=== PATIENT | female | born 1935 ===

== ENCOUNTER 2020-06-07 12:34 | Inpatient (IN) | payer MEDICARE, BC ==
[~2020-06-07 12:34] MED LIST: Dexamethasone 20 MG/5 ML VIAL ONE; Lidocaine 1% PF 5 ML VIAL ONE; Metoclopramide HCl 10 MG/2 ML VIAL ONE; Ondansetron PF 4 MG/2 ML Vial ONE; PROPOFOL 200 MG/20 ML VIAL ONE; Rocuronium Bromide 10 MG/ML (10ML VIAL) ONE; ePHEDrine 50 MG/ML VIAL ONE
[2020-06-07] MEDS ORDERED: Ondansetron ODT 4 MG TAB PO PRN (15:36)
[2020-06-07] MEDS ORDERED: Ondansetron PF 4 MG/2 ML Vial IVP PRN (15:36)
[2020-06-07] MEDS ORDERED: hydrALAZINE 20 MG/ML VIAL SLOW IVP PRN (15:36)
[2020-06-07] MEDS ORDERED: Dextrose 50% Abboject 50 ML SYRINGE SLOW IVP PRN (15:36)
[2020-06-07] MEDS ORDERED: Dextrose 5% in Water 1,000 ML IV PRN (15:36)
[2020-06-07] MEDS ORDERED: Morphine 2 MG/ML VIAL SLOW IVP PRN ×2 (15:39→20:51)
[2020-06-07] MEDS ORDERED: traMADol HCl 50 MG TAB PO PRN (15:41)
[2020-06-07 16:56] VITALS: BMI 27.1
[2020-06-07] MEDS ORDERED: Fentanyl 100 MCG/2 ML VIAL ONE ×4 (17:00→19:52)
[2020-06-07] MEDS ORDERED: Ketamine 50 MG/ML (10ML VIAL) ONE (17:38)
[2020-06-07] MEDS: Ibuprofen 600 MG TAB PO SCH (18:42)
[2020-06-07] MEDS ORDERED: SUGAMMADEX SODIUM 200 MG/2 ML VIAL ONE (19:04)
[2020-06-07] MEDS: Acetaminophen 325 MG TAB PO SCH (19:06)
[2020-06-07] MEDS: traMADol HCl 50 MG TAB PO SCH (19:07)
[2020-06-07] MEDS ORDERED: Promethazine HCl 25 MG/ML VIAL IM PRN (19:40)
[2020-06-07] MEDS ORDERED: Ondansetron HCl/PF 4 MG/2 ML Vial IVP PRN (19:40)
[2020-06-07] MEDS ORDERED: Promethazine HCl 25 MG/ML VIAL SLOW IVP PRN (19:40)
[2020-06-07] MEDS: Docusate 100 MG CAP PO SCH (20:33)
[2020-06-07] MEDS: Famotidine/PF 20 mg/2ml Vial SLOW IVP SCH (20:34)
[2020-06-07 21:32] LABS: #Monocytes 0.2 thou/uL (0.11-0.59); #Neutrophils 9.9 thou/uL (1.40-6.50); %Basophils 0.2 % (0.0-1.0); %Monocytes 1.9 % (0.0-10.0); %Neutrophils 88.9 % (42.0-75.0); Hemoglobin 9.7 g/dL (12.0-16.0); Mean Corpuscular HGB CONC 33.8 g/dL (32.0-36.0); Mean Corpuscular Hemoglobin 32.1 pg (27.0-31.0); Mean Corpuscular Volume 94.9 fL (78.0-98.0); Mean Platelet Volume 8.2 fL (7.4-10.4); Platelet Count 202 thou/uL (130-400); RBC Distribution Width 11.5 % (11.5-14.5); Red Blood Cell (RBC) Count 3.03 mill/uL (4.20-5.40); White Blood Cell (WBC) Count 11.1 thou/uL (4.8-10.8)
[2020-06-07 21:40] LABS: INR-International Normal Ratio 1.1; PTT 26.5 sec (22.9-36.1)
[2020-06-07 21:46] LABS: Anion Gap 13 mmol/L (10-20); BUN (Urea Nitrogen) 27 mg/dL (9.8-20.1); Calc. Creatinine Clearance 33 mL/min (70-130); Calcium 9.8 mg/dL (7.8-10.44); Carbon Dioxide 22 mmol/L (23-31); Chloride 106 mmol/L (98-107); Glucose 143 mg/dL (83-110); Magnesium 1.4 mg/dL (1.6-2.6); Phosphorus 3.6 mg/dL (2.3-4.7); Potassium 4.5 mmol/L (3.5-5.1); Sodium 136 mmol/L (136-145)
[2020-06-07] MEDS ORDERED: Sodium Chloride 0.9% 500 ML IV SCH (22:30)
[2020-06-07] MEDS ORDERED: Sodium Chloride 0.9% 1,000 ML IV SCH (23:59)
[2020-06-08] MEDS: Ibuprofen 600 MG TAB PO SCH ×2 (00:22→08:16)
[2020-06-08] MEDS: traMADol HCl 50 MG TAB PO SCH ×5 (00:23→23:51)
[2020-06-08] MEDS: Acetaminophen 325 MG TAB PO SCH ×5 (00:24→23:51)
[2020-06-08] MEDS ORDERED: Hydrocortisone Sod Succ/PF 100 mg/2 ml Vial IVP SCH (00:45)
[2020-06-08] MEDS: CEFAZOLIN 2 GM in Premix Bag 1 BAG IVPB SCH ×3 (01:14→18:12)
[2020-06-08] MEDS: Hydrocortisone Sod Succ/PF 100 mg/2 ml Vial IVP SCH ×4 (05:17→23:52)
[2020-06-08 05:45] LABS: #Monocytes 0.3 thou/uL (0.11-0.59); #Neutrophils 7.4 thou/uL (1.40-6.50); %Eosinophils 0.1 % (0.0-10.0); %Lymphocytes 11.6 % (21.0-51.0); %Monocytes 2.8 % (0.0-10.0); %Neutrophils 85.5 % (42.0-75.0); Hemoglobin 7.9 g/dL (12.0-16.0); Mean Corpuscular HGB CONC 33.7 g/dL (32.0-36.0); Mean Corpuscular Hemoglobin 32.2 pg (27.0-31.0); Mean Corpuscular Volume 95.6 fL (78.0-98.0); Platelet Count 170 thou/uL (130-400); RBC Distribution Width 11.4 % (11.5-14.5); Red Blood Cell (RBC) Count 2.44 mill/uL (4.20-5.40); White Blood Cell (WBC) Count 8.6 thou/uL (4.8-10.8)
[2020-06-08 06:05] LABS: Anion Gap 15 mmol/L (10-20); BUN (Urea Nitrogen) 32 mg/dL (9.8-20.1); Calc. Creatinine Clearance 28 mL/min (70-130); Calcium 9.1 mg/dL (7.8-10.44); Carbon Dioxide 17 mmol/L (23-31); Chloride 108 mmol/L (98-107); Glucose 126 mg/dL (83-110); Magnesium 2.9 mg/dL (1.6-2.6); Potassium 4.7 mmol/L (3.5-5.1); Sodium 135 mmol/L (136-145)
[2020-06-08 06:06] LABS: Phosphorus 4.7 mg/dL (2.3-4.7)
[2020-06-08] MEDS: Docusate 100 MG CAP PO SCH ×2 (08:13→19:48)
[2020-06-08] MEDS: Carvedilol 6.25 MG TAB PO SCH ×2 (08:14→19:49)
[2020-06-08] MEDS: Famotidine/PF 20 mg/2ml Vial SLOW IVP SCH (08:14)
[2020-06-08 08:44] LABS: SARS-CoV-2 PCR by NAA Not Detected (NotDetected)
[2020-06-08] MEDS ORDERED: Famotidine/PF 20 mg/2ml Vial SLOW IVP SCH (09:00)
[2020-06-08] MEDS: Heparin 5,000 UNITS/ML VIAL SC SCH ×2 (09:13→19:48)
[2020-06-09] MEDS: traMADol HCl 50 MG TAB PO SCH ×4 (05:31→23:46)
[2020-06-09] MEDS: Hydrocortisone Sod Succ/PF 100 mg/2 ml Vial IVP SCH ×4 (05:32→23:47)
[2020-06-09] MEDS: Acetaminophen 325 MG TAB PO SCH ×4 (05:32→23:47)
[2020-06-09 05:59] LABS: #Lymphocytes 0.9 thou/uL (1.20-3.40); #Monocytes 0.6 thou/uL (0.11-0.59); #Neutrophils 6.7 thou/uL (1.40-6.50); %Basophils 0.1 % (0.0-1.0); %Lymphocytes 11.4 % (21.0-51.0); %Monocytes 7.2 % (0.0-10.0); %Neutrophils 81.4 % (42.0-75.0); Mean Corpuscular HGB CONC 34.7 g/dL (32.0-36.0); Mean Corpuscular Hemoglobin 33.4 pg (27.0-31.0); Mean Corpuscular Volume 96.3 fL (78.0-98.0); Mean Platelet Volume 8.4 fL (7.4-10.4); Platelet Count 140 thou/uL (130-400); RBC Distribution Width 11.5 % (11.5-14.5); Red Blood Cell (RBC) Count 2.09 mill/uL (4.20-5.40); White Blood Cell (WBC) Count 8.3 thou/uL (4.8-10.8)
[2020-06-09 06:39] LABS: ALT (SGPT) Less than 7 U/L (8-55); AST (SGOT) 19 U/L (5-34); Albumin 3.3 g/dL (3.4-4.8); Alkaline Phosphatase 28 U/L (40-110); Anion Gap 10 mmol/L (10-20); BUN (Urea Nitrogen) 42 mg/dL (9.8-20.1); Bilirubin, Total 0.2 mg/dL (0.2-1.2); Calc. Creatinine Clearance 27 mL/min (70-130); Calcium 8.9 mg/dL (7.8-10.44); Carbon Dioxide 23 mmol/L (23-31); Chloride 106 mmol/L (98-107); Glucose 121 mg/dL (83-110); Magnesium 2.4 mg/dL (1.6-2.6); Phosphorus 3.5 mg/dL (2.3-4.7); Potassium 4.7 mmol/L (3.5-5.1); Protein, Total 5.3 g/dL (5.8-8.1); Sodium 134 mmol/L (136-145)
[2020-06-09] MEDS: Carvedilol 6.25 MG TAB PO SCH ×2 (08:45→20:21)
[2020-06-09] MEDS: Heparin 5,000 UNITS/ML VIAL SC SCH ×2 (08:46→20:21)
[2020-06-09] MEDS: Docusate 100 MG CAP PO SCH ×2 (08:46→20:21)
[2020-06-09] MEDS: Famotidine 20 MG TAB PO SCH (08:46)
[2020-06-09 13:08] LABS: Anion Gap 9 mmol/L (10-20); BUN (Urea Nitrogen) 37 mg/dL (9.8-20.1); Calc. Creatinine Clearance 31 mL/min (70-130); Calcium 8.9 mg/dL (7.8-10.44); Carbon Dioxide 22 mmol/L (23-31); Chloride 105 mmol/L (98-107); Glucose 136 mg/dL (83-110); Potassium 4.4 mmol/L (3.5-5.1); Sodium 132 mmol/L (136-145)
[2020-06-10] MEDS: traMADol HCl 50 MG TAB PO SCH ×4 (05:15→23:34)
[2020-06-10] MEDS: Acetaminophen 325 MG TAB PO SCH ×4 (05:15→23:38)
[2020-06-10] MEDS: Hydrocortisone Sod Succ/PF 100 mg/2 ml Vial IVP SCH (05:16)
[2020-06-10 06:20] LABS: Hemoglobin 8.5 g/dL (12.0-16.0); Mean Corpuscular HGB CONC 33.7 g/dL (32.0-36.0); Mean Corpuscular Hemoglobin 32.2 pg (27.0-31.0); Mean Corpuscular Volume 95.4 fL (78.0-98.0); Mean Platelet Volume 8.6 fL (7.4-10.4); Platelet Count 134 thou/uL (130-400); RBC Distribution Width 12.4 % (11.5-14.5); Red Blood Cell (RBC) Count 2.63 mill/uL (4.20-5.40); White Blood Cell (WBC) Count 6.9 thou/uL (4.8-10.8)
[2020-06-10 06:38] LABS: Phosphorus 2.5 mg/dL (2.3-4.7)
[2020-06-10] MEDS: Spironolactone 25 MG TAB PO SCH (08:57)
[2020-06-10] MEDS: Docusate 100 MG CAP PO SCH ×2 (08:57→20:10)
[2020-06-10] MEDS: Famotidine 20 MG TAB PO SCH (08:57)
[2020-06-10] MEDS: Heparin 5,000 UNITS/ML VIAL SC SCH ×2 (08:57→20:09)
[2020-06-10] MEDS: Carvedilol 6.25 MG TAB PO SCH ×2 (08:57→20:10)
[2020-06-11] MEDS: Acetaminophen 325 MG TAB PO SCH ×3 (05:12→17:07)
[2020-06-11] MEDS: traMADol HCl 50 MG TAB PO SCH ×3 (05:13→17:07)
[2020-06-11] MEDS ORDERED: Senokot 8.6 MG TAB PO SCH ×2 (09:00)
[2020-06-11] MEDS: Carvedilol 6.25 MG TAB PO SCH (09:00)
[2020-06-11] MEDS ORDERED: Polyethylene Glycol 3350 17 GM Packet PO SCH (09:00)
[2020-06-11] MEDS: Spironolactone 25 MG TAB PO SCH (09:00)
[2020-06-11] MEDS ORDERED: Losartan 25 MG TAB PO SCH (09:00)
[2020-06-11] MEDS ORDERED: Olmesartan 5 MG TAB PO SCH (09:00)
[2020-06-11] MEDS: Docusate 100 MG CAP PO SCH (09:01)
[2020-06-11] MEDS: Heparin 5,000 UNITS/ML VIAL SC SCH (09:01)
[2020-06-11] MEDS ORDERED: cloNIDine 0.1 MG TAB PO PRN (09:40)
[2020-06-11] MEDS ORDERED: Bisacodyl 10 MG SUPP PR PRN (09:45)
[2020-06-11] MEDS: Bisacodyl 10 MG SUPP PR SCH ×2 (11:07→17:08)
[2020-06-11 15:32] VITALS: BP 167/74; TEMP 98.3
== END 2020-06-11 19:45 | DRG 480 ==
LOC: SJJU 14:25
PROVIDERS: ADMIT Surgery; ATTEND Surgery
PROC: 0QSB04Z Reposition Right Lower Femur with Internal Fixation Device, Open Approach (ICD-10-PCS; principal; 2020-06-07)
PROC: 30233N1 Transfusion of Nonautologous Red Blood Cells into Peripheral Vein, Percutaneous Approach (ICD-10-PCS; 2020-06-09)
DX: S72.491A Other fracture of lower end of right femur, initial encounter for closed fracture (principal); I50.33 Acute on chronic diastolic (congestive) heart failure; N17.9 Acute kidney failure, unspecified; Z20.822 Contact with and (suspected) exposure to COVID-19; Z23 Encounter for immunization; F32.9 Major depressive disorder, single episode, unspecified; F41.9 Anxiety disorder, unspecified; K21.9 Gastro-esophageal reflux disease without esophagitis; G47.00 Insomnia, unspecified; R79.89 Other specified abnormal findings of blood chemistry; K59.00 Constipation, unspecified; I11.0 Hypertensive heart disease with heart failure; R00.1 Bradycardia, unspecified; I95.9 Hypotension, unspecified; D64.9 Anemia, unspecified; Z90.710 Acquired absence of both cervix and uterus; Z79.899 Other long term (current) drug therapy; W01.0XXA Fall on same level from slipping, tripping and stumbling without subsequent striking against object, initial encounter; Y92.129 Unspecified place in nursing home as the place of occurrence of the external cause
CPT/HCPCS: 36415; 36430; 76000; 80048; 80053; 82533; 83735; 83880; 84100; 85025; 85027; 85610; 85730; 86850; 86900; 86901; 87635; 90471; 90732; 93005; 93010; 93306; C1713; G0009; J0360; J0690; J1100; J1644; J1720; J2405; J2704; J2765; J3010; J3475; J3490; P9016; S0028; U0003; U0005